=== PATIENT | female | born 1990 | race Caucasian/White ===

== ENCOUNTER 2017-05-24 19:55 | Emergency (ER) | payer OTHER ==
[2017-05-24 21:22] LABS: BILIRUBIN NEGATIVE (NEGATIVE); BLOOD NEGATIVE Ery/uL (NEGATIVE); CLARITY CLEAR (CLEAR); COLOR YELLOW (YELLOW); GLUCOSE (U) NORMAL (NORMAL); KETONE (U) NEGATIVE (NEGATIVE); LEUKOCYTES 1+ Leu/uL (NEGATIVE); NITRITE NEGATIVE (NEGATIVE); PROTEIN NEGATIVE (NEGATIVE); UROBILINOGEN 0.2 mg/dL (0.2-1.0)
[2017-05-24 21:34] LABS: BACTERIA TRACE
[2017-05-24 22:15] LABS: BASOPHIL 0.3 % (0-2); EOSINOPHIL 1.2 % (0-5); HCT 39.4 % (37.0-47.0); LYMPHOCYTE 35.4 % (15-48); MCV 84.7 fL (78.0-100.0); MONOCYTE 4.9 % (0-12); MPV 9.3 fL (6.0-9.5); NEUTROPHIL 58.2 % (41-80); PLT 290 K/uL (150-400); RBC 4.65 M/uL (4.20-5.40); WBC 11.6 K/uL (4.0-10.5)
[2017-05-24 22:34] LABS: ALBUMIN 3.9 g/dL (3.5-5.0); BILIRUBIN - TOTAL 0.2 mg/dL (0.1-1.0); CREATININE 0.6 mg/dL (0.5-1.0); GLOBULIN (CALCULATION) 3.3 g/dL (2.2-4.2); POTASSIUM 3.8 mmol/L (3.5-5.1); TOTAL PROTEIN 7.2 g/dL (6.4-8.3)
== END 2017-05-24 23:44 | disposition home or self-care (01) ==
LOC: FER 19:55
PROVIDERS: Emergency Medicine
DX: S39.011A Strain of muscle, fascia and tendon of abdomen, initial encounter (principal)
CPT/HCPCS: 36415; 80053; 81001; 82150; 83690; 85025

== ENCOUNTER → 2020-12-19 | Day surgery (SDC) | payer OTHER ==
[~2020-12-19] MED LIST: ALLERGY10 MG PO; PRENATAL PO; PROTONIX 40MG T40 MG PO; PROZAC20 M1 PO; REGLAN10 MG PO
[2020-12-19 08:53] LABS: HCG (URINE) SCREEN NEGATIVE (NEGATIVE)
[2020-12-19 09:13] LABS: HCT 42.9 % (37.0-47.0); HGB 13.3 g/dl (12.5-16.0); MCH 26.9 pg (25.0-31.0); MCV 86.8 fL (78.0-100.0); MPV 9.8 fL (6.0-9.5); RBC 4.94 M/uL (4.20-5.40); RDW 15.3 % (11.5-14.0); WBC 8.2 K/uL (4.0-10.5)
[2020-12-19 09:28] LABS: BUN/CREAT RATIO (CALC) 21.8 RATIO; CREATININE 0.55 mg/dL (0.51-0.95)
== END | disposition home or self-care (01) ==
LOC: FAS 08:29
PROVIDERS: Obstetrics & Gynecology
DX: D06.9 Carcinoma in situ of cervix, unspecified (principal); E66.9 Obesity, unspecified; Z68.42 Body mass index [BMI] 45.0-49.9, adult
CPT/HCPCS: 36415; 80048; 84703; 86850; 86900; 86901; J1885; J2250; J2405; J2704; J3010; J7120